=== PATIENT | female | born 1940 | race Caucasian/White ===

== ENCOUNTER 2024-03-13 16:13 | Inpatient (IN) | payer OTHER, SELFPAY ==
[2024-03-13] VITALS (13 sets, daily range): BP systolic 123–164; BP diastolic 60–90; BMI 24.0; BMI 25.2
--- NOTE | 2024-03-13 10:29 | ED.GENMED ---
History of Present Illness
General
Chief Complaint: Abdominal Symptoms
Source: patient
Exam Limitations: none
Time Seen by Provider: 03/13/24 10:28
Nursing documentation reviewed up to this point in time: agreed with
History of Present Illness
History of Present Illness:
83 yo female w no significant pmhx, Covid symptoms of stuffiness, H/A, tested Covid positive 4 days ago. Here today for one bloody mucus bowel movement this a.m. and mild lower abdominal pain. Denies f/c/n/v. Denies CP or SOB.
Pt had diarrhea 4 days ago x 3 and took Imodium and has had none since.
Past History
Past History
ED Past Medical History: None
ED Past Surgical History: None
Social History
Tobacco: Non-smoker
Alcohol: None
Drug: None
Living: alone
Review of Systems
Review of Systems
Allergies reviewed?: Yes
All Other Systems: ROS reviewed and negative except as documented in HPI and ROS
Constitutional: Denies fever or fatigue
Respiratory: Denies trouble breathing
Cardiac: Denies chest pain
ABD/GI: Reports abdominal pain, bloody stools and anorexia; Denies nausea or vomiting
: Denies dysuria, frequency, difficulty voiding or urgency
Musculoskeletal: Reports no symptoms
Skin: Reports no symptoms
Neurological: Reports no symptoms
Phy Exam
Physical Exam
Physical Exam:
GENERAL: No acute distress. A&Ox3.
CONSTITUTIONAL: Afebrile.
EYES: clear, conjunctivae normal
ENMT: moist mucus membranes, Pharynx nl
RESPIRATORY: Regular respirations, nonlabored, lungs clear.
CARDIOVASCULAR: Regular rate and rhythm, no murmurs, no rubs.
GI: Soft, mildly tender to palpation mid to right lower abdomen, normal BS
Rectal: small amount pinkish mucus in rectal vault: heme positive
MUSCULOSKELETAL: Moves with ease. Well perfused.
SKIN: Warm, dry, pink
PSYCH: Normal mood and affect. Well kept, interactive and appropriate
NEUROLOGIC: Awake, alert and oriented. No focal neurological deficits
Course
Orders/Labs/Results
Orders:
Orders
03/13/24 10:46
IV Insert/Care/Rem.- Treatment PRN
03/13/24 10:47
CT Abd/Pel (IV only)-DH only Urgent
Comment:
Reason For Exam: pain across lower abd, blood stool
03/13/24 10:48
0.9% Sodium Chloride 1000 ml [Nss] 1,000 ml IV BOLUS
03/13/24 10:52
C-Reactive Protein Urgent
Comment: ADD ON
Complete Blood Count/With Diff Urgent
Comprehensive Metabolic Panel Urgent
Erythrocyte Sed Rate Urgent
Comment: ADD ON
Lipase Urgent
03/13/24 12:55
Urinalysis Reflex To Culture Urgent
Date Specimen was Collected: 03/13/24
Time Specimen was Collected: 10:54
03/13/24 13:01
Add On- LAB Urgent
Tests Added?: ESR, CRP
03/13/24 13:11
Morphine Sulfate 4 mg IV NOW STA
03/13/24 13:12
Ciprofloxacin HCl [Cipro] 500 mg PO NOW STA
03/13/24 13:18
MetroNIDAZOLE 500 MG/100 ML [Flagyl 500 mg] 100 ml IV NOW
03/13/24 15:17
Stool Culture Urgent
EUSEBIO Source: Feces/Stool
Specimen Description:
Date Specimen was Collected: 03/13/24
Time Specimen was Collected: 15:30
03/13/24 15:29
GASTROINTESTINAL CONSULT Urgent
Consulting Provider: Mary Dubon
Was physician already notified: Yes
Reason for consult: severe colitis rectum, sigmoid and descending colon.
03/13/24 15:49
COVID-19 Antigen Routine
Source: Nasal Swab
03/13/24 15:52
Type+Screen Urgent
Abnormal Lab Results
03/13/24 03/13/24
10:52 12:55
RBC 4.01 L 10^6/uL
(4.20-5.40)
Hct 36.0 L %
(37.0-47.0)
MCH 31.4 H pg
(27.0-31.0)
Lymphocytes % 17.7 L %
(20.5-51.1)
ESR 25 H mm/hour
(0-20)
Glucose 113 H mg/dl
(70-99)
C-Reactive Protein 37.20 H mg/L
(0.0-10.00)
Urine Ketones Trace A
(Negative)
03/13/24 10:52
03/13/24 10:52
Vital Signs
Initial and Last Documented VS:
Initial Vital Signs
Temp Pulse Resp BP Pulse Ox
98.0 F 83 16 160/90 98
03/13/24 09:49 03/13/24 09:49 03/13/24 09:49 03/13/24 09:49 03/13/24 09:49
Last Documented Vital Signs
Temp Pulse Resp BP Pulse Ox
98.5 F 74 20 145/64 98
03/13/24 10:55 03/13/24 15:23 03/13/24 15:23 03/13/24 15:23 03/13/24 15:23
MDM/Problems Addressed
Differential Diagnosis Includes:
hemorrhoid, fissure, ruptured diverticula, colitis, diverticulitis
MDM/Problems Addressed:
83 yo female w no significant pmhx, Covid symptoms of stuffiness, H/A, tested Covid positive 4 days ago. Here today for one bloody mucus bowel movement this a.m. and mild lower abdominal pain. Denies f/c/n/v. Denies CP or SOB.
Pt had diarrhea 4 days ago x 3 and took Imodium and has had none since.
Afebrile, NAD
11:45 a.m.
CBC unremarkable
CMP normal
Lipase normal
U/A neg
Radiology just texted me the report on patient's CAT scan: severe colitis involving rectum, sigmoid, and descending colon.
Non toxic, no fever, no significant pain, has had only one bloody stool, no tachycardia
Case discussed with Dr. Cool who agrees with Sathya, will add Flagyl. Message left on GI follow up text to contact pt for f/u.
Pt unable to give stool sample at this time
3:15 p.m.
Sed rate 25
CRP pending
Pt Cookie Munoz 83 yo with no pmhx, takes no meds, here with lower abd pain and bloody stool. Stable. CT showing severe colitis involving rectum, sigmoid, and descending colon.
Initially pt was willing to go home but she lives alone, she and family are requesting to be admitted.
Pt will be admitted for pain management, obtain stool culture, IV antibiotics
Hospitalist notified of admission
GI Dr. Dubon notified and consult in
*Critical Care Note
Total Time (30-74mins, 75-104mins- exclusive of procedures): Not Applicable
ED Attending Note
-
Portions of this chart may have been created with voice recognition software.� Occasional wrong word or��sound alike� substitutions may have occurred due to the inherent limitations of voice recognition software.
Discharge Plan
Departure
Patient Disposition: Admit
Date of Disposition: 03/13/24
Time of Disposition: 15:15
Admit to: Med/Surg
Presentation/result/management discussed w/ accepting MD/DO: Hospitalist
Condition: Fair
Discharge Problem:
Colitis
Prescriptions:
No Action
loperamide 2 mg Tablet
2 mg PO BIDPRN PRN (Reason: diarrhea)
Theragen Tablet
1 tab PO DAILY
acetaminophen [Tylenol Extra Strength] 500 mg Tablet
1,000 mg PO BIDPRN PRN (Reason: mild pain)
Benefiber (guar gum) Packet
1 packet PO DAILY
estradiol [Estrace] 0.01 % (0.1 mg/gram) Cream
1 appful VAGINAL MOFR
Ocuvite Tablet
1 tab PO DAILY
glucosamine-chondroitin [Osteo Bi-Flex] 250-200 mg Tablet
1 tab PO DAILY
cholecalciferol (vitamin D3) [Vitamin D3] 25 mcg (1,000 unit) Tablet
25 mcg PO DAILY
turmeric 400 mg Capsule
400 mg PO DAILY
Referrals:
Yazmin Ackerman MAIL INSERTER [Family Provider] -
Interventions
Interventions:
*Risk Screen - Suicide Last Done: 03/13/24 09:49
*General Assessment Last Done: 03/13/24 10:55
*Neglect/Abuse Screening Last Done: 03/13/24 09:49
ED- Fall Risk Assessment Last Done: 03/13/24 10:55
*ED COVID-19 Vaccine History Last Done: 03/13/24 10:55
VG-Bgxsjh-Zycxutgjbi Assessment Last Done: 03/13/24 10:55
Discharge Date and Time
Print Language: TELUGU
[2024-03-13] MEDS: NSS 1000 IV ×2 (11:00→17:31)
[2024-03-13 11:05] LABS: % Basophils 0.1 % (0-2); % Eosinophils 0.3 % (0-6); % Immature Granulocytes 0.4 % (0-0.5); % Lymphocytes 17.7 % (20.5-51.1); % Monocytes 6.6 % (1.7-9.3); % Neutrophils 74.9 % (42.2-75.2); Absolute Lymphocytes 1.4 10^3/uL (1.2-3.4); Absolute Monocytes 0.5 10^3/uL (0.1-0.6); Absolute Neutrophils 5.8 10^3/uL (1.4-6.5); Hemoglobin 12.6 g/dL (12.0-16.0); Mean Corpuscular Hgb 31.4 pg (27.0-31.0); Mean Corpuscular Volume 89.8 fL (81.0-99.0); Mean Platelet Volume 9.6 fL (7.4-10.4); Nucleated Red Blood Cells % 0 %; Platelet Count 216 10^3/uL (130-400); Red Blood Cell Count 4.01 10^6/uL (4.20-5.40); White Blood Cell Count 7.7 10^3/uL (4.8-10.8)
[2024-03-13 11:18] LABS: ALT (SGPT) 22 U/L (0-35); AST (SGOT) 32 U/L (14-36); Albumin 3.9 g/dl (3.5-5.0); Alkaline Phosphatase 67 U/L (38-126); Blood Urea Nitrogen 17 mg/dl (7-17); Calcium 9.1 mg/dl (8.4-10.2); Carbon Dioxide 27 mmol/L (22-30); Chloride 101 mmol/L (98-107); Estimated Creatinine Clearance 46 ml/min; Glucose 113 mg/dl (70-99); Lipase 65 U/L (23-300); Potassium 4.1 mmol/L (3.5-5.1); Sodium 138 mmol/L (135-145); Total Bilirubin 0.6 mg/dl (0.2-1.3); Total Protein 6.3 g/dl (6.3-8.2); eGFR > 60.00
[2024-03-13 13:08] LABS: Urine Albumin Negative (Neg - Trace); Urine Bilirubin Negative (Negative); Urine Character Slightly Cloudy (Clear); Urine Color Yellow; Urine Glucose Negative (Negative); Urine Ketone Trace (Negative); Urine Leukocyte Negative (Negative); Urine Nitrite Negative (Negative); Urine Occult Blood Negative (Negative); Urine Urobilinogen Negative (Neg - 1+)
[2024-03-13] MEDS: FLAGYL 500 MG 100 IV (13:23)
[2024-03-13] MEDS: MORPHINE SULFATE 4 MG IV (13:24)
[2024-03-13] MEDS: CIPRO 500 MG PO (13:24)
[2024-03-13 15:06] LABS: Erythrocyte Sed Rate 25 mm/hour (0-20)
--- NOTE | 2024-03-13 15:38 | CON.GI ---
Addendum entered and electronically signed by Mary Dubon MD 03/13/24 18:18:
I saw and examined the patient.
The FINISH REPAIR WORKER's note was reviewed and I agree with the note.
Comment: This is a very pleasant 83-year-old female with past medical history as listed below who was in her usual state of health up until a few days ago and she has been feeling fatigued and her brother was recently positive for COVID and patient
and her sisters had visited him and she tested for COVID about 4 days ago and was positive. She denies any fevers or chills. But she did have symptoms of diarrhea on and had taken Imodium for the next 2 days. Prior to that she usually
takes Benefiber daily but ran out of it about 2 weeks ago. Today she started having lower abdominal pain and had an episode of rectal bleeding which prompted her to come into the emergency room and CT on admission showed severe colitis involving
the rectum and sigmoid colon she is afebrile and has no leukocytosis, elevated CRP noted. Her last colonoscopy was in [address] Saleh which showed internal hemorrhoids and was otherwise normal. Her COVID test was repeated in the ER and was
positive
Assessment and plan 1. Her initial onset of symptoms of diarrhea about 4 days ago were most likely related to COVID she was also having profound fatigue and loss of appetite associated with that. She then took Imodium and her diarrhea resolved but
she had rectal bleeding today and CT shows colitis which may be infectious versus ischemic colitis especially given that she was dehydrated with the diarrhea and was really unable to have much oral intake. Continue with antibiotics, okay for clear
liquids, continue to monitor hemoglobin currently remained stable and has not really had any further episodes of diarrhea or rectal bleeding since today morning. if she does have further episodes will check for stool studies including C. difficile
and cultures.
Original Note:
Consultation
-
Date/Time Consultation Requested: 03/13/24 1530
Date/Time Consultation Performed: 03/13/24 1540
Requesting Provider: SENTHIL Strickland
Performing Provider: SENTHIL Hunter, aMry Dubon MD
Reason for Consultation: colitis
Medical History
Chief Complaint / HPI
Chief Complaint: abdominal pain, bloody stools
History of Present Illness:
Pt is a 83yo with hx hyperlipidemia recurrent UTI, osteoporosis, rectocele, and ext hemorrhoids with onset of covid symptoms with stuffiness. She is noted + covid several days ago and then had diarrrhea. She admits to running out of fiber
supplement about 2 weeks ago and then noted with diarrhea several days ago and took several doses of Imodium. She now reports this am some lower abdominal pain with rectal bleeding. Ct on admission with severe colitis involving rectum and sigmoid
with normal WBC but CRP 37.2 and ESR 25. Hx colonoscopy 2004 with internal hemorrhoids and normal TI. She otherwise dysphagia, GERD, nausea, vomiting, constipation.
Past Medical History
Past Medical History: Hypercholesterolemia and Other (allergic Rhinitis, bronchitis, osteoporosis, recurrent UTI's, atrophic vaginitis, rectocele, hemorrhoids)
Past Surgical History: Other (cataract surgery)
Social History
Tobacco: Non-Smoker
Alcohol: None
Drug: None
Employment: Retired
Family History
Family History: Reviewed & Not Pertinent (both parents with heart disease, no family hx colon CA)
Allergies / Home Medications
Allergy/AdvReac Type Severity Reaction Status Date / Time
ketorolac tromethamine Allergy Unknown Verified 03/13/24 09:52
[From Acular]
naproxen sodium [From Aleve] Allergy Rash Verified 03/13/24 09:52
�Medication �Instructions �Recorded
acetaminophen 500 mg tablet 1,000 mg PO BIDPRN PRN mild pain 03/13/24
(Tylenol Extra Strength)
cholecalciferol (vitamin D3) 25 25 mcg PO DAILY 03/13/24
mcg (1,000 unit) tablet (Vitamin
D3)
estradiol 0.01% (0.1 mg/gram) 1 appful vaginal MOFR 03/13/24
vaginal cream (Estrace)
glucosamine-chondroitin 250 mg-200 1 tab PO DAILY 03/13/24
mg tablet (Osteo Bi-Flex)
guar gum 1 packet PO DAILY 03/13/24
loperamide 2 mg tablet 2 mg PO BIDPRN PRN diarrhea 03/13/24
therapeutic multivitamin 1 tab PO DAILY 03/13/24
turmeric 400 mg capsule 400 mg PO DAILY 03/13/24
vitamin A-vitamin C-vit E-min 1 tab PO DAILY 03/13/24
tablet
Review of Systems
-
History Source: Patient
Constitutional: Reports Fatigue
EENT: Reports Other (recent congestion with covid )
Respiratory: Reports No Symptoms
Cardiac: Reports No Symptoms
Abdomen/GI: Reports Abdominal Pain, Diarrhea and Bloody Stools
Neurological: Reports Weakness
Hematologic/Lymphatic: Reports Bleeding
Vital Signs
Temp Pulse Resp BP Pulse Ox
98.5 F 74 20 145/64 98
03/13/24 10:55 03/13/24 15:23 03/13/24 15:23 03/13/24 15:23 03/13/24 15:23
Physical Exam
Exam
General: Well Developed, Well Nourished and No Apparent Distress
HEENT: Normocephalic and Anicteric
Respiratory: Clear
Cardiac: Regular Rhythm
GI: Soft, Non Distended and Tender (lower abdomen )
Rectal: Other (per ER pink mucous heme +)
Musculoskeletal: No Clubbing and No Cyanosis
Skin: Warm and Dry
Neuro: Awake, Alert and AO x 3
Psych: Calm
Results
WBC 7.7 10^3/uL (4.8-10.8) 03/13/24 10:52
Hgb 12.6 g/dL (12.0-16.0) 03/13/24 10:52
Hct 36.0 % (37.0-47.0) L 03/13/24 10:52
MCV 89.8 fL (81.0-99.0) 03/13/24 10:52
Plt Count 216 10^3/uL (130-400) 03/13/24 10:52
Absolute Neuts (auto) 5.8 10^3/uL (1.4-6.5) 03/13/24 10:52
Sodium 138 mmol/L (135-145) 03/13/24 10:52
Potassium 4.1 mmol/L (3.5-5.1) 03/13/24 10:52
Chloride 101 mmol/L (98-107) 03/13/24 10:52
Carbon Dioxide 27 mmol/L (22-30) 03/13/24 10:52
BUN 17 mg/dl (7-17) 03/13/24 10:52
Creatinine 0.7 mg/dL (0.6-1.0) 03/13/24 10:52
Calcium 9.1 mg/dl (8.4-10.2) 03/13/24 10:52
Total Bilirubin 0.6 mg/dl (0.2-1.3) 03/13/24 10:52
AST 32 U/L (14-36) 03/13/24 10:52
ALT 22 U/L (0-35) 03/13/24 10:52
Alkaline Phosphatase 67 U/L (38-126) 03/13/24 10:52
Lipase 65 U/L (23-300) 03/13/24 10:52
Diagnostic Image Results:
Contrast enhanced CT of the abdomen and pelvis.
initial reading
1. Findings consistent with osteomyelitis involving the rectum and sigmoid, and descending colon. Colitis is likely infectious or inflammatory.
2. Small hiatal hernia.
3. Mild coronary arterial calcification. Please correlate with symptoms of and risk factors for coronary artery disease, with further workup as clinically appropriate.
addendum
1. Findings consistent with severe colitis involving the rectum and sigmoid, and descending colon. Colitis is likely infectious or inflammatory.
Prior GI Procedures:
Colonoscopy: lory 2004 internal hemorrhoids normal TI
Assessment / Plan
-
Pt is a 83yo with hx hyperlipidemia recurrent UTI, osteoporosis, rectocele, and ext hemorrhoids with onset of covid symptoms with stuffiness. She is noted + covid several days ago and then had diarrrhea. She admits to running out of fiber
supplement about 2 weeks ago and then noted with diarrhea several days ago and took several doses of Imodium. She now reports this am some lower abdominal pain with rectal bleeding. Ct on admission with severe colitis involving rectum and sigmoid
with normal WBC but CRP 37.2 and ESR 25. Hx colonoscopy 2004 [place] with internal hemorrhoids and normal TI.
-severe rectal and sigmoid colitis
-recent diarrhea with Imodium use
-covid +
other medical problems:
-hyperlipidemia
-recurrent UTI
-osteoporosis
-hx rectocele/hemorrhoids
PLAN:
etiology of abdominal pain with rectal bleeding related to colitis vs other-- may be infectious vs ischemic related with some dehydration vs other
stool bx to be sent c-diff held with no further diarrhea since admission
trend hbg
abx- IV zosyn
monitor stools --reviewed with family hold Benefiber for now and resume then colitis improved
clear diet
updated family at bedside
management of covid per hospitalist team
-
-
Thank you for consultation and allowing me to participate in the patient's care. Please call the tracer bullet section supervisor GI physician during the after hours with any questions or concerns.
--- NOTE | 2024-03-13 15:48 | HPS.HSE ---
Addendum entered and electronically signed by Abel Melendrez MD 03/13/24 16:02:
Blood consent signed and scan
Original Note:
Family Physician
-
Family Physician: Yazmin Ackerman
Chief Complaint
-
bloody mucus bowel movement
History of Present Illness
83F No significant PMHx , POS covif 4 days ago pw acute onset of one bloody mucus bowel movement thiis morning - associated with mild lower abdominal pain.
- Pt had diarrhea 4 days ago x 3 and took Imodium and has had none since.
ROS:
Denies f/c/n/v.
Denies CP or SOB.
Medical History
Past Medical History
Past Medical History: Reports None
Past Surgical History: Reports None
Social History
Tobacco: Non-smoker
Alcohol: None
Drug: None
Living: Alone
Family History
Family History: Not pertinent
Allergies / Home Medications
Allergies reflects when Allergies were last updated in [facility].
Home Medications with original date entered in [facility]
Allergy/Medication List:
Allergies
Allergy/AdvReac Type Severity Reaction Status Date / Time
ketorolac tromethamine Allergy Unknown Verified 03/13/24 09:52
[From Acular]
naproxen sodium [From Aleve] Allergy Rash Verified 03/13/24 09:52
Home Medications
acetaminophen 500 mg tablet (Tylenol Extra Strength) 1,000 mg PO BIDPRN PRN mild pain 03/13/24
cholecalciferol (vitamin D3) 25 mcg (1,000 unit) tablet (Vitamin D3) 25 mcg PO DAILY 03/13/24
estradiol 0.01% (0.1 mg/gram) vaginal cream (Estrace) 1 appful vaginal MOFR 03/13/24
glucosamine-chondroitin 250 mg-200 mg tablet (Osteo Bi-Flex) 1 tab PO DAILY 03/13/24
guar gum 1 packet PO DAILY 03/13/24
loperamide 2 mg tablet 2 mg PO BIDPRN PRN diarrhea 03/13/24
therapeutic multivitamin 1 tab PO DAILY 03/13/24
turmeric 400 mg capsule 400 mg PO DAILY 03/13/24
vitamin A-vitamin C-vit E-min tablet 1 tab PO DAILY 03/13/24
Review of Systems
-
Constitutional: Reports No Symptoms
EENT: Reports No Symptoms
Respiratory: Reports No Symptoms
Cardiac: Reports No Symptoms
Abdomen/GI: Reports See HPI, Abdominal Pain and Bloody Stools
: Reports No Symptoms
Musculoskeletal: Reports No Symptoms
Skin: Reports No Symptoms
Neurological: Reports No Symptoms
Endocrine: Reports No Symptoms
Hematologic/Lymphatic: Reports No Symptoms
Psych: Reports No Symptoms
Physical Exam
Vital Signs
Vital Signs
Temp Pulse Resp BP Pulse Ox
98.5 F 74 20 145/64 98
03/13/24 10:55 03/13/24 15:23 03/13/24 15:23 03/13/24 15:23 03/13/24 15:23
Physical Exam
General: Well Developed, Well Nourished and No Apparent Distress
HEENT: NormoCephalic, Moist mucous membranes and Atraumatic
Respiratory: Clear
Cardiac: S1/S2 and Regular Rhythm; No Murmur or Rub
GI: Soft, Non Tender, Non Distended, Normal Bowel Sounds and Tender (Soft, mildly tender to palpation mid to right lower abdomen, normal BS); No Organomegaly
Rectal: Other (small amount pinkish mucus in rectal vault: heme positive)
Musculoskeletal: No Clubbing, No Cyanosis and No Edema
Skin: No Rash
Neuro: Nonfocal/grossly intact
Laboratory Results
-
03/13/24 10:52
03/13/24 10:52
Laboratory Results
Total Bilirubin 0.6 mg/dl (0.2-1.3) 03/13/24 10:52
AST 32 U/L (14-36) 03/13/24 10:52
ALT 22 U/L (0-35) 03/13/24 10:52
Alkaline Phosphatase 67 U/L (38-126) 03/13/24 10:52
Lipase 65 U/L (23-300) 03/13/24 10:52
Data Reviewed
-
CT Scan: Report Reviewed by me
Lab Data: Labs Reviewed by me
Impression/Plan
-
Vital Signs
Temp Pulse Resp BP Pulse Ox
98.5 F 74 20 145/64 98
03/13/24 10:55 03/13/24 15:23 03/13/24 15:23 03/13/24 15:23 03/13/24 15:23
Laboratory Tests
03/13/24
10:52
WBC 7.7
Hgb 12.6
Plt Count 216
ESR 25 H
Creatinine 0.7
C-Reactive Protein 37.20 H
Stool Cx pending
CT Abd/Pel (IV only)-DH only
1. Findings consistent with severe colitis involving the rectum and sigmoid, and descending colon.
Colitis is likely infectious or inflammatory.
No prior hospitalist admission:
ASSESSMENT & PLAN
Acute severe diffuse colitis involving the rectum and sigmoid, and descending colon.
Associated hematochezia
- Hemodynamically
- DDX: infectious or inflammatory origin
- Clear and ADAT
- H & H
- Type and screen
- IV Zosyn in place of Cipro and Flagyl
- IVF
- PRN analgesia
- GI consult
Acute viral covid POS 4 days ago @ home
HX VELASQUEZ and felt foggy for 1week
Full Vax per patient
- Repeat Covid on admission
- supportive care
DVT Px: SCD
Code: Full
IP MS
[2024-03-13 16:37] LABS: COVID-19 Antigen Positive (Negative)
--- NOTE | 2024-03-13 18:39 | EDRN ---
this RN called the receiving unit and notified them that paper report was going to be tubed up
[2024-03-13 19:15] LABS: Hematocrit 31.6 % (37.0-47.0); Hemoglobin 11.1 g/dL (12.0-16.0)
--- NOTE | 2024-03-13 19:30 | PTCARENOTE ---
Received pt from ED via stretcher. Pt ambulated to bed with assist x1. AAOx3. VSS. No complaints of pain. Assessed and oriented to room. Pt verbalized understanding of call greco. Call greco within close reach. Will continue to monitor.
[2024-03-13] MEDS: ZOSYN 50 IV (21:27)
[2024-03-14 00:17] VITALS: BP 156/79
[2024-03-14] MEDS: ZOSYN 50 IV ×4 (01:53→20:13)
[2024-03-14 03:08] LABS: % Basophils 0.1 % (0-2); % Eosinophils 0.7 % (0-6); % Immature Granulocytes 0.4 % (0-0.5); % Neutrophils 64.8 % (42.2-75.2); Absolute Eosinophils 0.1 10^3/uL (0-0.7); Absolute Lymphocytes 1.9 10^3/uL (1.2-3.4); Absolute Monocytes 0.5 10^3/uL (0.1-0.6); Absolute Neutrophils 4.4 10^3/uL (1.4-6.5); Hematocrit 34.5 % (37.0-47.0); Mean Corp Hgb Conc. 34.8 g/dL (33.0-37.0); Mean Corpuscular Hgb 32.4 pg (27.0-31.0); Mean Corpuscular Volume 93.2 fL (81.0-99.0); Mean Platelet Volume 9.1 fL (7.4-10.4); Nucleated Red Blood Cells % 0 %; Platelet Count 213 10^3/uL (130-400); Red Cell Dist. Width 13.2 % (11.5-14.5); White Blood Cell Count 6.8 10^3/uL (4.8-10.8)
[2024-03-14 03:43] LABS: ALT (SGPT) 18 U/L (0-35); AST (SGOT) 26 U/L (14-36); Albumin 3.2 g/dl (3.5-5.0); Alkaline Phosphatase 56 U/L (38-126); Blood Urea Nitrogen 12 mg/dl (7-17); Carbon Dioxide 22 mmol/L (22-30); Chloride 106 mmol/L (98-107); Estimated Creatinine Clearance 46 ml/min; Glucose 101 mg/dl (70-99); Potassium 3.7 mmol/L (3.5-5.1); Sodium 139 mmol/L (135-145); Total Bilirubin 0.6 mg/dl (0.2-1.3); Total Protein 5.7 g/dl (6.3-8.2); eGFR > 60.00
[2024-03-14 07:50] VITALS: BP 145/71
[2024-03-14] MEDS: TYLENOL 650 MG PO (08:58)
[2024-03-14 09:50] VITALS: BP 137/71; PULSE 71; O2SAT 98
--- NOTE | 2024-03-14 10:06 | PTOTSP ---
Pt is able to get OOB and ambulate in her room without an assistive device. Anticipate pt returning home when medically stable. PT will sign off.
[2024-03-14 10:49] LABS: Hematocrit 30.9 % (37.0-47.0); Hemoglobin 10.8 g/dL (12.0-16.0)
[2024-03-14] MEDS: ULTRAM 50 MG PO (11:00)
--- NOTE | 2024-03-14 11:12 | W.PN.GI.CBS2 ---
Addendum entered and electronically signed by Mary Dubon MD 03/14/24 15:20:
I saw and examined the patient.
The YOUTH DIRECTOR's note was reviewed and I agree with the note.
Comment: Infectious versus ischemic colitis no further rectal bleeding or diarrhea abdominal pain is also improved on antibiotics and tolerating clear liquids. Was unable to provide any stool sample she has not had any further episodes since
admission. Symptoms are improving and she now wants to advance to full liquids for dinner. She also tested positive for COVID continue supportive care she currently denies any shortness of breath and she is afebrile
Original Note:
Today's Communication / Plan
-
etiology of abdominal pain with rectal bleeding related to colitis vs other-- may be infectious vs ischemic related with some dehydration vs other
stool pending to be sent as no stool or blood passed overnight
still with some lower abdominal pain
cont clear diet does not feel she is ready to advance
trend hbg remains stable at 10.8
cont abx- IV zosyn
management of covid per hospitalist team
Assessment / Plan
-
Pt is a 83yo with hx hyperlipidemia recurrent UTI, osteoporosis, rectocele, and ext hemorrhoids with onset of covid symptoms with stuffiness. She is noted + covid several days ago and then had diarrrhea. She admits to running out of fiber
supplement about 2 weeks ago and then noted with diarrhea several days ago and took several doses of Imodium. She now reports this am some lower abdominal pain with rectal bleeding. Ct on admission with severe colitis involving rectum and sigmoid
with normal WBC but CRP 37.2 and ESR 25. Hx colonoscopy 2004 with internal hemorrhoids and normal TI.
-severe rectal and sigmoid colitis
-recent diarrhea with Imodium use
-covid +
other medical problems:
-hyperlipidemia
-recurrent UTI
-osteoporosis
-hx rectocele/hemorrhoids
PLAN:
etiology of abdominal pain with rectal bleeding related to colitis vs other-- may be infectious vs ischemic related with some dehydration vs other
stool pending to be sent as no stool or blood passed overnight
still with some lower abdominal pain
cont clear diet does not feel she is ready to advance
trend hbg remains stable at 10.8
cont abx- IV zosyn
management of covid per hospitalist team
Subjective
Subjective
Date of Service: March 14, 2024
no stools on clear diet still with some pain requiring pain meds
Objective
Data Reviewed
Laboratory Data:
Laboratory Results
03/14/24 03:01
Laboratory Results
Total Bilirubin 0.6 mg/dl (0.2-1.3) 03/14/24 03:01
AST 26 U/L (14-36) 03/14/24 03:01
ALT 18 U/L (0-35) 03/14/24 03:01
Alkaline Phosphatase 56 U/L (38-126) 03/14/24 03:01
Lipase 65 U/L (23-300) 03/13/24 10:52
Vital Signs and I&O:
Vital Signs
Temp Pulse Resp BP Pulse Ox
98.2 F 74 20 145/71 98
03/14/24 07:50 03/14/24 07:50 03/14/24 07:50 03/14/24 07:50 03/14/24 09:02
I&O
03/13/24 03/14/24 03/15/24
06:59 06:59 06:59
Intake Total 900 / 900
Balance 900 / 900
Physical Exam
Physical Exam
HEENT: Anicteric and Moist mucous membranes
Cardiology: Normal Sinus Rhythm
Pulmonary: Clear
GI: Soft, Non Distended and Tender (LLQ mild )
Extremities: No Edema
Neuro: Non Focal
--- NOTE | 2024-03-14 11:14 | W.PN.HOSP.TC ---
Today's Communication/Plan
-
Advance diet per GI
CW ABX
DC planning
Assessment / Plan
Assessment / Plan
Acute severe diffuse colitis involving the rectum and sigmoid, and descending colon.
Associated hematochezia
Possible ischemic colitis vs infectious colitis
- Afebrile.
-Tolerating diet.
No further bowel movements or hematochezia.
-H&H stable.
-Continue with antibiotics. Advance diet per GI.
Acute viral covid POS 5 days ago @ home
HX VELASQUEZ and felt foggy for 1week
Full Vax per patient
- Repeat Covid on admission positive
- Afebrile; not hypoxic ; no SOB
- supportive care
DVT Px: SCD
Code: Full
Anticipated Discharge: 24 - 48 hours
Subjective/Interval History
-
Date of Service: March 14, 2024
No fever or chills.
Not much of sore throat. Denies shortness of breath. No cough.
Tolerating diet and in fact feeling hungry. Mild discomfort in the left lower abdomen. No further bowel movements/diarrhea/blood in the stools.
Objective Data
-
Labs:
Laboratory Results
03/14/24 03/14/24 03/14/24
03:01 03:01 03:01
WBC 6.8
Hgb 12.0 Cancelled
Hct 34.5 L Cancelled
Plt Count 213
Sodium 139
Potassium 3.7
Chloride 106
Carbon Dioxide 22
BUN 12
Creatinine 0.7
Glucose 101 H
Calcium 8.0 L
Total Bilirubin 0.6
AST 26
ALT 18
Alkaline Phosphatase 56
03/14/24 03/14/24
10:26 19:00
WBC
Hgb 10.8 L Pending
Hct 30.9 L Pending
Plt Count
Sodium
Potassium
Chloride
Carbon Dioxide
BUN
Creatinine
Glucose
Calcium
Total Bilirubin
AST
ALT
Alkaline Phosphatase
Vital Signs:
Vital Signs
Temp Pulse Resp BP Pulse Ox
98.2 F 74 20 145/71 98
03/14/24 07:50 03/14/24 07:50 03/14/24 07:50 03/14/24 07:50 03/14/24 09:02
I&O
03/13/24 03/14/24 03/15/24
06:59 06:59 06:59
Intake Total 900 / 900
Balance 900 / 900
Review of Systems
-
Respiratory: Denies Trouble Breathing
Cardiac: Denies Chest Pain
Neuro: Denies Dizzy
Physical Exam
-
General: Comfortable
Respiratory: Clear to Auscultation and Non Labored Respirations; Negative Rales, Crackles or Accessory Resp Muscle Use
Cardiac: Regular Rhythm and S1/S2; Negative Tachycardic
GI: Soft, Nondistended, Normal Bowel Sounds and Tender (LLQ but no rebound or guarding)
Neuro: AO x 3
Psych: Calm
Data Reviewed
-
Labs: Labs Reviewed by me
[2024-03-14 15:18] VITALS: BP 143/79
--- NOTE | 2024-03-14 15:57 | CM ---
Spoke w/ patient via telephone due to COVID-19 precautions.
Pt confirmed that she lives alone in a one story, 2 [address] knock[address] home
Pt denies any current or past food/housing/transportation insecurities.
Pt is retired.
No hx of SNF/HC. Pt denies any DME
Pt confirmed daughter will transport at d/c.
CM will cont. to follow for d/c planning needs.
Plan: Anticipated home with no needs
[2024-03-14 18:08] LABS: Hematocrit 31.1 % (37.0-47.0); Hemoglobin 11.1 g/dL (12.0-16.0)
[2024-03-14] MEDS: FLUSH (NSS) 2 FLUSH IV (20:13)
[2024-03-14 23:20] VITALS: BP 135/68
[2024-03-15] MEDS: ZOSYN 50 IV ×3 (01:25→13:54)
[2024-03-15 06:12] LABS: Hematocrit 30.8 % (37.0-47.0); Hemoglobin 10.8 g/dL (12.0-16.0); Mean Corp Hgb Conc. 35.1 g/dL (33.0-37.0); Mean Corpuscular Hgb 31.3 pg (27.0-31.0); Mean Corpuscular Volume 89.3 fL (81.0-99.0); Mean Platelet Volume 9.1 fL (7.4-10.4); Platelet Count 239 10^3/uL (130-400); Red Blood Cell Count 3.45 10^6/uL (4.20-5.40); Red Cell Dist. Width 12.9 % (11.5-14.5); White Blood Cell Count 6.5 10^3/uL (4.8-10.8)
[2024-03-15 06:36] LABS: ALT (SGPT) 16 U/L (0-35); AST (SGOT) 24 U/L (14-36); Albumin 3.1 g/dl (3.5-5.0); Alkaline Phosphatase 55 U/L (38-126); Blood Urea Nitrogen 9 mg/dl (7-17); Calcium 7.7 mg/dl (8.4-10.2); Carbon Dioxide 26 mmol/L (22-30); Chloride 104 mmol/L (98-107); Estimated Creatinine Clearance 40 ml/min; Glucose 90 mg/dl (70-99); Potassium 3.6 mmol/L (3.5-5.1); Sodium 140 mmol/L (135-145); Total Bilirubin 0.6 mg/dl (0.2-1.3); Total Protein 5.5 g/dl (6.3-8.2); eGFR > 60.00
[2024-03-15 07:51] VITALS: BP 166/75
--- NOTE | 2024-03-15 09:58 | W.PN.GI.CBS2 ---
Today's Communication / Plan
-
adv diet
OK to Dc home if tolerates diet
Assessment / Plan
-
Pt is a 83yo with hx hyperlipidemia recurrent UTI, osteoporosis, rectocele, and ext hemorrhoids with onset of covid symptoms with stuffiness. She is noted + covid several days ago and then had diarrrhea. She admits to running out of fiber
supplement about 2 weeks ago and then noted with diarrhea several days ago and took several doses of Imodium. She now reports this am some lower abdominal pain with rectal bleeding. Ct on admission with severe colitis involving rectum and sigmoid
with normal WBC but CRP 37.2 and ESR 25. Hx colonoscopy 2004 with internal hemorrhoids and normal TI.
-severe rectal and sigmoid colitis
-recent diarrhea with Imodium use
-covid +
other medical problems:
-hyperlipidemia
-recurrent UTI
-osteoporosis
-hx rectocele/hemorrhoids
PLAN:
Infectious versus ischemic colitis no further rectal bleeding or diarrhea
abdominal pain is also improved on antibiotics
was unable to provide any stool sample she has not had any further episodes since admission.
tolerating full liquids will adv diet to LRD
Okay to DC home today if tolerates diet with oral antibiotics for a total of 7 days
She also tested positive for COVID continue supportive care she currently denies any shortness of breath and she is afebrile
Subjective
Subjective
Date of Service: March 15, 2024
No further bleeding and has not really had a bowel movement since admission either. Her abdominal pain has improved, she is tolerating full liquids, hemoglobin remained stable after the initial drop
Objective
Data Reviewed
Laboratory Data:
Laboratory Results
03/15/24 05:35
03/15/24 05:35
Laboratory Results
Total Bilirubin 0.6 mg/dl (0.2-1.3) 03/15/24 05:35
AST 24 U/L (14-36) 03/15/24 05:35
ALT 16 U/L (0-35) 03/15/24 05:35
Alkaline Phosphatase 55 U/L (38-126) 03/15/24 05:35
Lipase 65 U/L (23-300) 03/13/24 10:52
Vital Signs and I&O:
Vital Signs
Temp Pulse Resp BP Pulse Ox
98.2 F 71 16 166/75 95
03/15/24 07:51 03/15/24 07:51 03/15/24 07:51 03/15/24 07:51 03/15/24 07:51
I&O
03/14/24 03/15/24 03/16/24
06:59 06:59 06:59
Intake Total 900 / 900 1120 / 1120
Balance 900 / 900 1120 / 1120
Physical Exam
Physical Exam
Cardiology: Normal Sinus Rhythm
Pulmonary: Clear
GI: Soft, Non Distended, Non Tender and Normal Bowel Sounds
--- NOTE | 2024-03-15 13:09 | W.PN.HOSP.TC ---
Today's Communication/Plan
-
dc
Assessment / Plan
Assessment / Plan
Acute severe diffuse colitis involving the rectum and sigmoid, and descending colon.
Associated hematochezia
Possible ischemic colitis vs infectious colitis
- Afebrile.
-Tolerating diet.
- No further hematochezia.
-H&H stable.
-Continue with antibiotics. Advanced diet per GI which she is tolerating.
Discussed with GI-okay for discharge from GI standpoint With 1 week of antibiotics. Follow-up with GI regarding further endoscopic evaluation after colitis
Acute viral covid POS 6 days ago @ home
HX VELASQUEZ and felt foggy for 1week
Full Vax per patient
- Repeat Covid on admission positive
- Afebrile; not hypoxic ; no SOB
- supportive care
DVT Px: SCD
Code: Full
Anticipated Discharge: Today
Subjective/Interval History
-
Date of Service: March 15, 2024
From COVID standpoint that she has no sore throat, cough or shortness of breath. She is not hypoxic.
Colitis she is tolerating diet without nausea vomiting. Her abdominal pain is resolved. She had 1 loose stool today and 2 yesterday. No blood in the stool.
Objective Data
-
Labs:
Laboratory Results
03/15/24
05:35
WBC 6.5
Hgb 10.8 L
Hct 30.8 L
Plt Count 239
Sodium 140
Potassium 3.6
Chloride 104
Carbon Dioxide 26
BUN 9
Creatinine 0.8
Glucose 90
Calcium 7.7 L
Total Bilirubin 0.6
AST 24
ALT 16
Alkaline Phosphatase 55
Vital Signs:
Vital Signs
Temp Pulse Resp BP Pulse Ox
98.2 F 71 16 166/75 95
03/15/24 07:51 03/15/24 07:51 03/15/24 07:51 03/15/24 07:51 03/15/24 07:51
I&O
03/14/24 03/15/24 03/16/24
06:59 06:59 06:59
Intake Total 900 / 900 1120 / 1120
Balance 900 / 900 1120 / 1120
Review of Systems
-
Constitutional: Denies Fever
Respiratory: Denies Trouble Breathing
Cardiac: Denies Chest Pain
Neuro: Denies Dizzy
Physical Exam
-
General: Comfortable
Respiratory: Non Labored Respirations; Negative Accessory Resp Muscle Use
Cardiac: Regular Rhythm and S1/S2
GI: Soft, Nontender, Nondistended and Normal Bowel Sounds
Neuro: AO x 3
Data Reviewed
-
Labs: Labs Reviewed by me
--- NOTE | 2024-03-15 15:02 | CM ---
CM spoke w/ hospitalist who confirmed pt will be d/c home today with no needs.
CM spoke w/ daughter, Lisseth, re pt's d/c. Lisseth confirmed she will be transporting pt home.
CM discussed IMM and due to pt's covid quarantine status and the inability to retrieve signature.
Lisseth agreed to sign IMM on pt's behalf.
CM will leave two copies of IMM on pt chart.
Plan: Home w/ no needs
[2024-03-15 15:57] VITALS: BP 160/84
== END 2024-03-15 15:44 | disposition home or self-care (01) | DRG 178 ==
LOC: 3 WEST ACU 16:13
PROVIDERS: Clinical Nurse Specialist Family Health; Registered Nurse; ADMITTING PHYSICIAN Internal Medicine; ATTENDING PHYSICIAN Internal Medicine; CONSULT PHYSICIAN Internal Medicine Gastroenterology; EMERGENCY PHYSICIAN Emergency Medicine; FAMILY PHYSICIAN Internal Medicine
DX: U07.1 COVID-19 (principal); A08.39 Other viral enteritis; K92.1 Melena; E78.00 Pure hypercholesterolemia, unspecified; J30.9 Allergic rhinitis, unspecified; K21.9 Gastro-esophageal reflux disease without esophagitis; K44.9 Diaphragmatic hernia without obstruction or gangrene; K64.8 Other hemorrhoids; M81.0 Age-related osteoporosis without current pathological fracture; K64.4 Residual hemorrhoidal skin tags; R53.83 Other fatigue; Z20.822 Contact with and (suspected) exposure to COVID-19; Z87.19 Personal history of other diseases of the digestive system; Z87.440 Personal history of urinary (tract) infections; Z88.8 Allergy status to other drugs, medicaments and biological substances
CPT/HCPCS: 74177; 80053; 81003; 83690; 85014; 85018; 85025; 85027; 85652; 86140; 86850; 86900; 86901; 87811; 96361; 96365; 96375; 97162; 99285; Q9967

== ENCOUNTER 2024-06-20 06:20 | Day surgery (SDC) | payer OTHER, SELFPAY | END 2024-06-20 12:25 | disposition home or self-care (01) | LOC: GI 06:20 | PROVIDERS: ATTENDING PHYSICIAN Internal Medicine Gastroenterology; FAMILY PHYSICIAN Internal Medicine | DX: K57.30 Diverticulosis of large intestine without perforation or abscess without bleeding (principal); K64.8 Other hemorrhoids; K64.4 Residual hemorrhoidal skin tags; R93.3 Abnormal findings on diagnostic imaging of other parts of digestive tract; R19.4 Change in bowel habit | CPT/HCPCS: 45378 ==

== ENCOUNTER → 2024-10-10 08:38 | Outpatient (REF) | payer OTHER, SELFPAY | LOC: HWRAD 08:38 | PROVIDERS: ATTENDING PHYSICIAN Family Medicine | DX: R10.9 Unspecified abdominal pain (principal) | CPT/HCPCS: 74176 ==

== ENCOUNTER 2024-11-24 06:23 | Day surgery (SDC) | payer OTHER, SELFPAY | END 2024-11-24 14:05 | disposition home or self-care (01) | LOC: GI 06:23 | PROVIDERS: ATTENDING PHYSICIAN Internal Medicine Gastroenterology | DX: R10.13 Epigastric pain (principal); R68.81 Early satiety; R93.3 Abnormal findings on diagnostic imaging of other parts of digestive tract; K22.2 Esophageal obstruction; K44.9 Diaphragmatic hernia without obstruction or gangrene; K31.7 Polyp of stomach and duodenum; K21.00 Gastro-esophageal reflux disease with esophagitis, without bleeding; K22.9 Disease of esophagus, unspecified | CPT/HCPCS: 43239; 88305 ==